=== PATIENT | male | born 1985 | race Caucasian/White ===

== ENCOUNTER 2021-06-16 06:32 | Emergency (ER) | payer SELFPAY ==
--- NOTE | ~2021-06-16 | XR_ITS ---
EXAMINATION: XR chest 2V DATE: 06/16/2021 07:31 INDICATION: Chest pain TECHNIQUE: PA and lateral views of the chest are obtained. COMPARISON: None available FINDINGS: The lungs are free of acute opacities. There is no pleural effusion or pneumothorax. The ca rdiomediastinal silhouette is normal. There is mild thoracic spondylosis. IMPRESSION: 1. No acute cardiopulmonary abnormality. Reviewed, dictated and finalized at location A. STRIAL INSULATOR
[2021-06-16 06:42] VITALS: BP 149/98; PULSE 103; RESP 16; TEMP 36.4; O2SAT 100
[2021-06-16 07:15] VITALS: BP 149/98; PULSE 93; RESP 16; O2SAT 97
--- NOTE | 2021-06-16 07:20 | ECG_ITS ---
Measurements Intervals [place] Rate: 86 P: 33 WI: 128 QRS: 2 QRSD: 98 T: 43 QT: 362 QTc: 433 Interpretive Statements SINUS RHYTHM DELAYED PRECORDIAL R/S TRANSITION BORDERLINE ECG Electronically Signed On 06-16-2021 8:02:03 CORPORATE QUALITY MANAGER by Jonatan Krause D.O.
[2021-06-16] MEDS: KETOROLAC 30 MG/ML VIAL (*BKC) IV PUSH (07:42)
--- NOTE | 2021-06-16 07:45 | ED.GENADULT ---
HPI - General Adult General Chief complaint: Neuro Symptoms/Deficit Stated complaint: Right sided facial drooping Time Seen by Provider: 06/16/21 07:00 History of Present Illness HPI narrative: Patient is a 36-year-old male who presents to the ER with 2 complaints. First complaint is right-sided facial droop and weakness ongoing for 1 week. Associate with tingling to the face as well. Reports he was eating some food 1 week ago and felt some pain in his lower jaw. That pain went away quickly. He woke up the next morning and started having some right-sided facial droop that then progressed over the course of hours. Denies fevers or sweats. No runny nose or cough. No known sick. Reports feeling chilled last night. He is without body aches. No new rash. Reports he has been using eyedrops for dry eyes on the right. Weakness has not improved. Patient also reports last night he started having some discomfort in the center of his chest, he cannot describe the quality of it. It was associated with some discomfort in his left arm as well. No exertional component. Currently resolved. Patient reports he has been anxious related to the symptoms and had a crying episode in front of his children and decided it was time to be checked out in the emergency room. No family history of coronary disease. Related Data Allergies Allergy/AdvReac Type Severity Reaction Status Date / Time No Known Allergies Allergy Unverified 05/19/14 18:14 Review of Systems Review of Systems: All systems reviewed & are unremarkable except as noted in HPI and below Constitutional: Constitutional: Reports chills, Denies fever(s) and Denies weakness ENT: Denies dysphagia, Denies nasal congestion and Denies sore throat Cardiovascular: Cardiovascular: Reports chest pain, Denies rapid heart rate and Reports radiating jaw, neck or arm pain Respiratory: Respiratory: Denies cough, Denies dyspnea and Denies wheezing Gastrointestinal: Gastrointestinal: Denies abdominal pain, Denies nausea and Denies vomiting Musculoskeletal: Musculoskeletal: Reports back pain (Chronic back and neck pain. ), Denies arthralgias and Denies joint swelling FORMERLY [facility], 1928–[facility] Past Medical History Medical History (Updated 06/16/21 @ 09:53 by Marvin Hogan MD) Healthy adult male Surgical History Surgical History (Updated 06/16/21 @ 07:48 by Marvin Hogan MD) No history of previous surgery Social History Social History (Updated 06/16/21 @ 07:48 by Marvin Hogan MD) Smoking status: Never smoker Substance use type: marijuana Exam Narrative: GENERAL: Well-appearing, well-nourished, and in no acute distress. HEAD: Normocephalic, atraumatic. EYES: PERRL and EOMI. unable to close the right eye. ENT: Mucous membranes moist. CHEST: Clear to auscultation. No respiratory distress. HEART: Regular rate and rhythm. Normal peripheral pulses. ABDOMEN: Soft, nontender, nondistended. EXTREMITIES: Normal range of motion. No edema. SKIN: Warm, dry, no rash. NEURO: Dense paralysis of the right face as he cannot smile/closes eyes/lift his eyebrow. Consistent with Carrillo's palsy. Alert and oriented x3. Course Course Emergency Course: Discussed diagnosis and treatment plan. Patient verbalized understanding. Discharge home. Vital Signs Vital signs: Vital Signs Temperature 97.6 F 06/16/21 06:42 Pulse Rate 103 H 06/16/21 06:42 Respiratory Rate 16 06/16/21 06:42 Blood Pressure 149/98 H 06/16/21 06:42 Pulse Oximetry 100 06/16/21 06:42 Temperature 97.6 F 06/16/21 06:42 Pulse Rate 103 H 06/16/21 06:42 Respiratory Rate 16 06/16/21 06:42 Blood Pressure 149/98 H 06/16/21 06:42 Pulse Oximetry 100 06/16/21 06:42 Medical Decision Making Vital Signs Vital Signs: Vital Signs Temperature 97.6 F 06/16/21 06:42 Pulse Rate 103 H 06/16/21 06:42 Respiratory Rate 16 06/16/21 06:42 Blood Pressure 149/98 H 06/16/21 06:42 Pulse Oximetry 100 06/16
[2021-06-16 07:58] LABS: Anion Gap 10 mmol/L (8-16); Blood Urea Nitrogen 15 mg/dL (9-20); Carbon Dioxide 26 mmol/L (22-30); Chloride 100 mmol/L (98-107); Estimated CRCL calculation 105 ml/min; Estimated Glomerular Filt Rate > 60; Glucose 120 mg/dL (65-110); Potassium 3.4 mmol/L (3.4-5.0); Sodium 136 mmol/L (137-145)
[2021-06-16 07:59] LABS: Basophils Percent Auto 0.3 % (0.2-1.2); Eosinophils Absolute Auto 0.2 K/mm3 (0-0.3); Hemoglobin 16.2 g/dL (14.0-18.0); Immature Granulocyte Absolute 0.02 K/mm3 (0.00-0.031); Immature Granulocyte Percent A 0.2 % (0-0.5); Lymphocytes Absolute Auto 2.77 K/mm3 (0.9-3.2); Lymphocytes Percent Auto 29.1 % (18.3-44.2); Mean Corpuscular HGB Conc 35.2 g/dl (32-36); Mean Corpuscular Hemoglobin 30.8 pg (26-34); Mean Corpuscular Volume 87.5 fl (80-100); Mean Platelet Volume 9.7 fl (7.4-10.4); Monocytes Absolute Auto 0.6 K/mm3 (0.1-0.6); Monocytes Percent Auto 5.9 % (2.6-8.5); Neutrophils Absolute Auto 5.9 K/mm3 (1.3-6.7); Neutrophils Percent Auto 62.5 % (45.5-73.1); Platelet Count Result 305 k/mm3 (150-375); Red Blood Count 5.26 M/mm3 (4.6-6.20); Red Cell Distribution Width 11.9 % (11.5-14.5); White Blood Count 9.5 K/mm3 (4.5-10.0)
[2021-06-16 08:09] LABS: Troponin I < 0.012 ng/mL (0.000-0.034)
[2021-06-16 08:12] VITALS: TEMP 36.4
[2021-06-16 10:26] VITALS: BP 132/85; PULSE 80; RESP 18; O2SAT 98
== END 2021-06-16 10:28 | disposition home or self-care (01) ==
PROVIDERS: Emergency Provider Emergency Medicine
DX: G51.0 Bell's palsy (principal)
CPT/HCPCS: 36415; 71046; 80048; 84484; 85025; 93005; 96374; 99284; J1885

== ENCOUNTER 2022-04-28 07:34 | Observation (INO) | payer MEDICAID, SELFPAY ==
[2022-04-28] VITALS (17 sets, daily range): BP systolic 116–139; BP diastolic 74–100; PULSE 85–113; RESP 14–20; TEMP 36.5–36.9; O2SAT 94–100
--- NOTE | ~2022-04-28 | CT_ITS ---
EXAMINATION: CTA chest PE protocol DATE: 04/28/2022 09:57 CDT INDICATION: Dyspnea TECHNIQUE: Computed tomographic angiography (CTA) of the chest was performed with 100 mL Omnipaque-35 0 intravenous contrast. The dose-length product was 794.83 mGy-cm. Maximum intensity projection 3D-re constructions of the aorta and other arteries were constructed by the technologist on a separate work station. Automated exposure control and iterative reconstruction technique were employed. COMPARISON: No prior studies for comparison. . FINDINGS: Study is technically adequate. There are small filling defect and bilateral lower lobe segm ental and subsegmental pulmonary arteries, consistent with pulmonary embolism, small thrombus burden. No large central pulmonary embolism. Heart size normal. Small hiatal hernia. No significant pleural or pericardial effusion. The upper abdomen is unremarkable. No pneumothorax. No endobronchial lesions . There is dependent atelectasis. No pulmonary nodules or masses. IMPRESSION: 1. Bilateral lower lobe pulmonary embolism, small thrombus burden. Reviewed, dictated and finalized at location A.
--- NOTE | ~2022-04-28 | XR_ITS ---
EXAMINATION: XR chest 1V portable 04/28/2022 08:06 INDICATION: Chest heaviness PROCEDURE: AP portable chest COMPARISON: 06/16/2021 FINDINGS: The lungs are clear. The cardiomediastinal silhouette is within normal limits. There are no pleural effusions. There is no pneumothorax suspected. IMPRESSION: 1: NO ACUTE CARDIOPULMONARY DISEASE. Reviewed, dictated and finalized at location A.
--- NOTE | ~2022-04-28 | US_ITS ---
EXAMINATION:US venous doppler LE RT INDICATION:Right calf pain TECHNIQUE: Multiple grayscale, color flow and Doppler images of the right lower extremity deep venous systems were obtained and reviewed. COMPARISON:No prior studies for comparison. FINDINGS: The common femoral, superficial femoral and popliteal veins demonstrate normal respiratory variation, augmentation and compressibility. Color flow is also seen within the posterior tibial, pe roneal, greater saphenous and profunda veins. There are varicose veins in the right calf. IMPRESSION: 1: No lower extremity deep venous thrombosis. Reviewed, dictated and finalized at location A.
--- NOTE | 2022-04-28 07:38 | ECG_ITS ---
Measurements Intervals [place] Rate: 102 P: 2 [place]: 120 QRS: 35 QRSD: 93 T: 12 QT: 335 QTc: 436 Interpretive Statements SINUS TACHYCARDIA ABNORMAL RHYTHM ECG COMPARED TO ECG 06/16/2021 07:48:31 SINUS TACHYCARDIA NOW PRESENT Electronically Signed On 04-28-2022 10:19:22 CDT by Long Christopher M.D.
--- NOTE | 2022-04-28 07:56 | ED.CHESTPAIN ---
HPI - Chest Pain General Chief Complaint: Chest Pain Stated Complaint: multiple complaints Time Seen by Provider: 04/28/22 07:37 Source: RN notes reviewed History of Present Illness HPI narrative: Patient presents emergency department from home for leg pain and chest pain. Patient states has been having pain in his right medial calf for the past 1 week. He states the pain is described as aching in nature and when it initially began he is able to put pressure on the leg but that has improved over the past several days states that the pain is only located over the lateral calf with no other areas of pain he denies any recent car trips or immobilization. States he also has been having chest pain has been ongoing for the past 1 year states the pain occurs almost on a daily basis and occur several times a day the pain is located over the midsternal chest and goes into his left shoulder described as a tightness and last several seconds and resolve nothing seems to make the pain better or worse denies any fevers or chills shortness of breath nausea vomiting or any other symptoms Related Data Home Medications Medication Instructions Recorded Confirmed No Home Medications 04/28/22 04/28/22 Allergies Allergy/AdvReac Type Severity Reaction Status Date / Time No Known Allergies Allergy Unverified 04/28/22 07:55 Review of Systems Review of Systems: Gen.: Denies fevers or chills ENT: Denies congestion Respiratory: Denies shortness of breath or cough CV: See HPI GI: Denies abdominal pain nausea, emesis or diarrhea Musculoskeletal: Denies back pain reports right calf pain Neuro: Denies numbness, tingling, weakness or focal weakness Skin: Denies rash Except as documented, all other systems reviewed and negative [facility] Past Medical History Medical History Healthy adult male Surgical History Surgical History (Updated 06/16/21 @ 07:48 by Marvin Hogan MD) No history of previous surgery Family History Family History (Updated 04/28/22 @ 13:04 by Lorna Rios RN) Other Unknown family medical history Social History Social History Smoking status: Never smoker Alcohol intake: never Substance use: current Substance use type: marijuana Other substance usage details: daily use for pain management, has medical card Last use: 04/27/2022 Spiritual care concerns: No Exam Narrative: APPEARANCE: No acute distress, nontoxic, resting in bed EYES: EOMI HEENT: Normocephalic, atraumatic, OMM RESPIRATORY: No respiratory distress Clear to auscultation bilaterally with no rhonchi wheezing or rales. CARDIOVASCULAR: Regular rate and rhythm without murmurs rubs or gallops. ABDOMINAL: Soft, nontender, nondistended, no rebound or guarding MUSCULOSKELETAl: Moves all extremities. No clubbing, cyanosis or edema. Tender to palpation of the right medial calf no tenderness of the posterior or lateral calf. No tenderness of the ankle or knee and forage motion of both dorsalis pedis pulse 2+ neurovascular NEURO: Awake and alert. Following commands, speech normal, no focal deficits SKIN:: Warm, dry. No rashes lesions or abrasions PSYCHIATRIC: Normal affect/mood, Course Course Emergency Course: Discussed with patient he does smoke marijuana but does not smoke cigarettes no recent travel no family history of blood clots Discussed with Dr. Dailey agrees with admission at this time we will put on anticoagulation work-up and will start patient on Lovenox Discussed with patient and family results of workup and diagnosis. Discussed need for admission. Patient and family understand and agree to current treatment plan Vital Signs Vital signs: Vital Signs Temperature 98.5 F 04/28/22 07:42 Pulse Rate 94 04/28/22 07:42 Respiratory Rate 18 04/28/22 07:42 Blood Pressure 139/91 H 04/28/22 07:42 Pulse Oximetr
[2022-04-28 08:06] LABS: Basophils Percent Auto 0.4 % (0.2-1.2); Eosinophils Absolute Auto 0.4 K/mm3 (0-0.3); Hematocrit 48.2 % (42.0-52.0); Hemoglobin 16.3 g/dL (14.0-18.0); Immature Granulocyte Absolute 0.02 K/mm3 (0.00-0.031); Immature Granulocyte Percent A 0.3 % (0-0.5); Lymphocytes Absolute Auto 2.62 K/mm3 (0.9-3.2); Lymphocytes Percent Auto 35.4 % (18.3-44.2); Mean Corpuscular HGB Conc 33.8 g/dl (32-36); Mean Corpuscular Hemoglobin 30.5 pg (26-34); Mean Corpuscular Volume 90.3 fl (80-100); Mean Platelet Volume 9.1 fl (7.4-10.4); Monocytes Absolute Auto 0.5 K/mm3 (0.1-0.6); Monocytes Percent Auto 6.5 % (2.6-8.5); Neutrophils Absolute Auto 3.9 K/mm3 (1.3-6.7); Neutrophils Percent Auto 52.4 % (45.5-73.1); Platelet Count Result 266 k/mm3 (150-375); Red Blood Count 5.34 M/mm3 (4.6-6.20); Red Cell Distribution Width 12.2 % (11.5-14.5); White Blood Count 7.4 K/mm3 (4.5-10.0)
[2022-04-28 08:20] LABS: Alanine Aminotransferase 42 U/L (6-50); Albumin Level 4.9 g/dL (3.5-5.1); Alkaline Phosphatase 47 U/L (38-126); Anion Gap 13 mmol/L (8-16); Aspartate Amino Transferase 30 U/L (17-59); Bilirubin,Total 0.6 mg/dL (0.2-1.3); Blood Urea Nitrogen 16 mg/dL (9-20); Calcium 9.2 mg/dL (8.4-10.2); Carbon Dioxide 27 mmol/L (22-30); Chloride 102 mmol/L (98-107); Estimated CRCL calculation 115 ml/min; Estimated Glomerular Filt Rate > 60; Glucose 123 mg/dL (65-110); Lipase 49 U/L (23-300); Sodium 142 mmol/L (137-145)
[2022-04-28 08:32] LABS: NT Pro B Type Natriuretic Pept < 11 pg/mL (5-100); Troponin I < 0.012 ng/mL (0.000-0.034)
[2022-04-28 08:35] LABS: Partial Thromboplastin Time 26.3 SECONDS (22.3-36.8); Prothrombin Time 12.8 Seconds (11.1-14.7)
[2022-04-28 08:43] LABS: D Dimer 1.13 ug/mL (<0.48)
[2022-04-28] MEDS: ENOXAPARIN 100 MG/ML SYRINGE SUB-Q ×2 (11:13→20:31)
[2022-04-28 11:28] LABS: Troponin I < 0.012 ng/mL (0.000-0.034)
[2022-04-28 11:32] LABS: SARS-CoV-2 RNA PCR Negative
--- NOTE | 2022-04-28 12:04 | ADMGEN ---
This patient, Tian Rodriguez, was admitted to IMU Room 206-01. Patient/family oriented to hospital policies and general routines including ID bracelet, bed and alarms, visiting hours, pain management, procedures, bathroom and other care routines, personal items, smoking policy, room service/diet, and visiting hours. Information on how to activate the Rapid Response Team has been discussed. Patient/Family are encouraged to report perceived risks to care and to ask questions if they do not understand what they are told or what they should do.
[2022-04-28 14:29] LABS: Troponin I < 0.012 ng/mL (0.000-0.034)
--- NOTE | 2022-04-28 18:00 | PM.IMHP ---
H&P: HPI History of Present Illness Date/Time: 04/28/22 18:00 Chief Complaint: Calf and chest pain. Narrative: This is a 36-year-old male who presented to the emergency department via private vehicle from home this morning for evaluation of calf and chest pain. About a week ago go he developed a painful knot on the medial aspect of the right upper calf which was red and warm to touch. It caused him constant throbbing discomfort and for a couple of days he could hardly even bear weight on that leg due to severe pain. This morning he was having heaviness in the left anterior chest and he thought it would be best to come in for evaluation. His vital signs on arrival to the ED were stable and aside from a moderately elevated D-dimer, his labs were otherwise unremarkable. Venous Doppler ultrasound of the right leg showed no evidence of DVT but a chest CTA showed evidence of bilateral lower lobe pulmonary embolism and he is being admitted in this setting for further workup. With further questioning the pain he has been having in his chest is not new and in fact it has been occurring intermittently over the past 1 year. He has chronic pain and uses medical marijuana for that. Although he has not had official diagnosis he and his think that he likely suffers from fibromyalgia. He denies having a sedentary lifestyle and tells me that he is always on the go ?nonstop.? They drove to [place], [place] within the last couple of weeks but he has not had any significant travel. He denies personal and family history of venous thromboembolism. No history of malignancy. Weight has remained stable. Review of Systems Review of Systems: Twelve systems were reviewed. No syncope or presyncope. No chest pain, pleuritic pain, or palpitations. He denies shortness of breath. No nausea, vomiting, or sweats. He has chronic pain and suspects he has fibromyalgia. Medical marijuana seems to help his pain the most. Except as documented, all other systems were reviewed and are negative. [facility] Past Medical History Medical History (Updated 04/28/22 @ 23:58 by Lisa Morrison PA-C) Carrillo palsy Surgical History Surgical History No history of previous surgery Family History Family History Other Unknown family medical history Social History Social History Social History: Surrogate medical decision maker: Paulette Rodriguez, spouse. Code status: Full code. Smoking status: Never smoker Alcohol intake: never Substance use: current Substance use type: marijuana Other substance usage details: Daily use for pain management, has medical card Last use: 04/27/2022 Spiritual care concerns: No Meds Home Medications and Allergies Home Medications Medication Instructions Recorded Confirmed Type No Home Medications 04/28/22 04/28/22 History Allergies Allergy/AdvReac Type Severity Reaction Status Date / Time No Known Allergies Allergy Unverified 04/28/22 07:55 Vital Signs Vital Signs - 24 hr 04/28/22 07:42 04/28/22 07:50 04/28/22 07:51 Temperature 98.5 F Pulse Rate 94 94 Respiratory Rate 18 Blood Pressure 139/91 H Pulse Oximetry 100 100 Oxygen Delivery Room Air Room Air 04/28/22 07:52 04/28/22 07:52 04/28/22 08:01 Temperature Pulse Rate 93 91 Respiratory Rate 15 17 Blood Pressure 136/88 Pulse Oximetry 100 100 99 Oxygen Delivery Room Air 04/28/22 08:16 04/28/22 09:37 04/28/22 11:45 Temperature Pulse Rate 90 88 97 Respiratory Rate 15 18 18 Blood Pressure 134/85 137/92 H 134/94 H Pulse Oximetry 98 98 99 Oxygen Delivery 04/28/22 14:00 Temperature Pulse Rate 101 H Respiratory Rate Blood Pressure Pulse Oximetry Oxygen Delivery Exam Narrative: General: Well-developed male sitting up in be
[2022-04-29] VITALS (9 sets, daily range): BP systolic 121–135; BP diastolic 78–85; PULSE 77–111; RESP 16; TEMP 36.1–36.6; O2SAT 97–100
[2022-04-29 04:38] LABS: Basophils Percent Auto 0.5 % (0.2-1.2); Eosinophils Absolute Auto 0.4 K/mm3 (0-0.3); Eosinophils Percent Auto 4.1 % (0-4.4); Hematocrit 47.5 % (42.0-52.0); Immature Granulocyte Absolute 0.02 K/mm3 (0.00-0.031); Immature Granulocyte Percent A 0.2 % (0-0.5); Lymphocytes Absolute Auto 3.63 K/mm3 (0.9-3.2); Mean Corpuscular HGB Conc 33.7 g/dl (32-36); Mean Corpuscular Hemoglobin 30.7 pg (26-34); Mean Platelet Volume 9.3 fl (7.4-10.4); Monocytes Absolute Auto 0.6 K/mm3 (0.1-0.6); Monocytes Percent Auto 6.5 % (2.6-8.5); Neutrophils Absolute Auto 3.9 K/mm3 (1.3-6.7); Neutrophils Percent Auto 45.7 % (45.5-73.1); Platelet Count Result 261 k/mm3 (150-375); Red Blood Count 5.22 M/mm3 (4.6-6.20); Red Cell Distribution Width 11.9 % (11.5-14.5); White Blood Count 8.5 K/mm3 (4.5-10.0)
[2022-04-29 04:55] LABS: Anion Gap 12 mmol/L (8-16); Blood Urea Nitrogen 17 mg/dL (9-20); Calcium 9.2 mg/dL (8.4-10.2); Carbon Dioxide 28 mmol/L (22-30); Chloride 102 mmol/L (98-107); Estimated CRCL calculation 103 ml/min; Estimated Glomerular Filt Rate > 60; Glucose 105 mg/dL (65-110); Potassium 3.8 mmol/L (3.4-5.0); Sodium 142 mmol/L (137-145)
[2022-04-29] MEDS: ENOXAPARIN 100 MG/ML SYRINGE SUB-Q (08:16)
--- NOTE | 2022-04-29 12:40 | PM.DS ---
DS: Admitting Diagnosis Discharge Date 04/29/2022 Admitting Diagnosis cough and chest pain DS: Discharge Diagnosis Discharge Diagnosis (1) Pulmonary embolism: Code(s): I26.99 - Other pulmonary embolism without acute cor pulmonale Status: Acute (2) Varicose vein of leg: Code(s): I83.90 - Asymptomatic varicose veins of unspecified lower extremity Status: Acute DS: Summary Hospital Course Hospital Course: The patient presented to the emergency department for evaluation right calf and left chest pain.? Venous Doppler ultrasound was negative for DVT however he has evidence of tortuous varicosities in the right leg and by history it sounds like they may have been thrombosed last week thoughThese symptoms have improved.? subsequently had a CTA done which did present bilateral lower lobe pulmonary clot burden. Echocardiogram was done which showed EF 60-65% grade 1 diastolic dysfunction with no signs of right heart strain. Precipitating etiology is not entirely clear at this time . He does report multiple joint pains that he had suffered from since he was a kid. He stated he had multiple evaluations done but also reports that the same x-rays. He had opted to go for medical marijuana treatment for his diffuse joint. He does not report swollen joint with these associated joint pains. He does not have any family history or personal history clotting disorder. I offer him further evaluation for his joint pain with x-rays and also notified him that he will need continue workup as an outpatient basis he is not interested in getting x-rays done would like to do this as an outpatient basis with his primary care doctor. Which he currently does not. Have provided him with a list of primary care doctor the in follow-up with. We did get hypercoagulation profile ordered which needs to be followed up as outpatient basis. Options of anticoagulation patient reviewed and opted for Eliquis. He will be working on getting insurance card for himself. He hemodynamically stable throughout the hospital stay. Time Spent with Patient Time attestation: Total time spent providing and/or coordinating discharge services: 45 minutes Exam Narrative: General: Well-developed male sitting up in bed no distress. HEENT: PERRL, EOMI. Sclera anicteric. Oral mucosa moist. Oropharynx clear. Neck: Supple. Respiratory: Lungs are clear to auscultation bilaterally. respiratory distress Cardiovascular: Regular rate and rhythm with S1-S2. Chest: nontender Gastrointestinal: Abdomen is soft, nontender, and nondistended with positive bowel sounds. Skin: Warm and dry. No rash or lesions on limited exam. Extremities: No cyanosis, clubbing, or significant edema. Radial and pedal pulses intact. Tortuous varicosities of the saphenous veins in the right lower leg. He is mildly tender to palpation over these areas. Neurological: Alert. Cranial nerves 2-12 are grossly intact. No gross focal deficits Psychiatric: Pleasant and cooperative with normal mood and affect. Judgment and insight intact. DS: Data Data Completed and Pending Completed studies during hospitalization: Exam Type: ? ? CA echo doppler color flow Study Info Indications ?? ? - CHEST PAIN,? PULMONARY EMBOLISM Complete two-dimensional, color flow and Doppler transthoracic echocardiogram is performed. Account #: ? ? [id number] Summary ? 1. Complete two-dimensional, color flow and Doppler transthoracic echocardiogram is performed. ? 2. Left ventricular systolic function is normal, estimated at 60-65%. ? 3. The left ventricular diastolic function is grade I diastolic dysfunction. ? 4. Right ventricular chamber dimension is normal. ? 5. Right ventricular systolic function is normal. Left Ventricle ? Left ventricular chamber dimension is normal. ? Left ventricular systolic function is normal, estimated at 60-65%. ? There is mildly increased left ventricular wall thickness.
--- NOTE | 2022-04-29 15:27 | ECHO_ITS ---
Patient Info Name: Tian Rodriguez Age: 36 years : 1985 Gender: Male Ht: 69 in Wt: 203 lbs BSA: 2.14 m2 HR: 96 bpm BP: 133 / 78 mmHg Heart Rhythm: Sinus Rhythm Technical Quality: Fair Exam Date: 04/29/2022 10:06 AM Exam Location: [facility] Card Pulmonary Patient Status: Inpatient Admit Date: 04/28/2022 Staff Ordering Physician: Lisa Morrison PA-C Diesel Power Mechanic: Kamala Kruse RDCS Attending Provider: Kirby Dailey MD Referring Physician: Prince TAN; Exam Type: CA echo doppler color flow Study Info Indications - CHEST PAIN, PULMONARY EMBOLISM Complete two-dimensional, color flow and Doppler transthoracic echocardiogram is performed. Summary 1. Complete two-dimensional, color flow and Doppler transthoracic echocardiogram is performed. 2. Left ventricular systolic function is normal, estimated at 60-65%. 3. The left ventricular diastolic function is grade I diastolic dysfunction. 4. Right ventricular chamber dimension is normal. 5. Right ventricular systolic function is normal. Left Ventricle Left ventricular chamber dimension is normal. Left ventricular systolic function is normal, estimated at 60-65%. There is mildly increased left ventricular wall thickness. The left ventricular diastolic function is grade I diastolic dysfunction. Right Ventricle Right ventricular chamber dimension is normal. Right ventricular systolic function is normal. Left Atria Left atrial chamber dimension is normal. Right Atria Right atrial chamber dimension is normal. Aortic Valve The aortic valve is not well visualized. There is no aortic valve stenosis. There is no aortic valve regurgitation. Pulmonic Valve The pulmonic valve is not well visualized. Mitral Valve The mitral valve has normal leaflets. There is no mitral valve stenosis. There is no mitral valve regurgitation. Tricuspid Valve The tricuspid valve leaflets are normal. There is no significant tricuspid valve stenosis. There is no tricuspid valve regurgitation. Pericardium/Pleural There is no pericardial effusion. Aorta The aortic root size at the sinus of Valsalva is normal. Left Ventricular Outflow Tract Name Value Normal LVOT 2D LVOT Diameter 2.0 cm LVOT Doppler LVOT Peak Gradient 4 mmHg LVOT Mean Gradient 2 mmHg LVOT VTI 16 cm LVOT VTI/AV VTI Ratio 0.8 LVOT Stroke Volume 47 ml LVOT CO 4.2 l/min LVOT CI 2.0 l/min/m2 Pulmonic Valve Name Value Normal RVOT Doppler RVOT Peak Gradient 2 mmHg PV Doppler PV Peak Gradient
--- NOTE | 2022-04-30 09:23 | P.PNCROSS_ITS ---
Event Note Event Note Event Note: Patient was called on 04/30/2022 with possible reaction to Eliquis. After he t ook Eliquis last night he got hot and started coughing fit with some nausea. Discussed settled down in half an hour to an hour. He had been doing then. He did not have any fever prior to this. He has not found his primary care yet. He will need to be on anticoagulation. Options to go back on Lovenox shot versus switching to Xarelto. Does Xarelto to try. Benadryl ordered in case the allergic reaction happened. To go to the ER if this recurs again. Xarelto order to [facility]
[2022-04-30 20:38] LABS: Antithrombin III Activity 128 % normal (80-135)
[2022-04-30 22:30] LABS: Homocysteine 9.7 umol/L (<11.4)
[2022-05-02 02:22] LABS: Anti Cardio Antibody IgM <2.0 MPL-U/mL (<20.0); Anti Cardiolipin Antibody IgA <2.0 APL-U/mL (<20.0); Anti Cardiolipin Antibody IgG <2.0 GPL-U/mL (<20.0)
[2022-05-03 11:43] LABS: Protein C Antigen 114 % normal (70-140)
[2022-05-04 06:58] LABS: Lupus dRVVT Screen 37 sec (<=45); PTT-LA Screen 37 sec (<=40)
[2022-05-09 19:27] LABS: Factor V (Leiden) Mutation NEGATIVE
== END 2022-04-29 13:25 | disposition home or self-care (01) ==
LOC: ANHED 08:17 → ANHIMU 11:43
PROVIDERS: Admitting Provider Internal Medicine; Emergency Provider Emergency Medicine; Visit Provider Internal Medicine
DX: I26.99 Other pulmonary embolism without acute cor pulmonale (principal); M79.604 Pain in right leg; I83.90 Asymptomatic varicose veins of unspecified lower extremity; F12.90 Cannabis use, unspecified, uncomplicated; Z20.822 Contact with and (suspected) exposure to COVID-19
CPT/HCPCS: 36415; 71045; 71275; 80048; 80053; 81240; 81241; 81291; 83090; 83690; 83880; 84484; 85025; 85300; 85302; 85303; 85306; 85380; 85610; 85613; 85730; 86038; 86147; 93005; 93306; 93971; 96372; 99285; C9803; G0378; J1650; Q9967; U0003; U0005